=== PATIENT | female | born 1955 | race Caucasian/White ===

== ENCOUNTER 2017-02-17 20:09 | Emergency (ER) | payer OTHER ==
[~2017-02-17] VITALS: Ht 152.4 cm; Wt 88.0 kg
[2017-02-17 20:14] VITALS: Ht 152.4 cm; Wt 88.0 kg
[2017-02-17] MEDS ORDERED: KETOROLAC 30 MG INJ IM STA (21:40)
[2017-02-17] MEDS ORDERED: HYDROCODONE/APAP (5/325) TAB PO ONE (22:00)
--- NOTE | 2017-02-17 22:35 | RADRPT ---
PROCEDURE: US DVT. CLINICAL INDICATION: Left lower extremity pain and swelling. TECHNIQUE: Multiple longitudinal and transverse images of the left lower extremity veins were obta ined with sarabia scale and color Doppler imaging. 2D grayscale measurements with compression, color D oppler flow, and augmentation was performed. The calf veins were interrogated as well. COMPARISON: No prior studies are available for comparison. FINDINGS: The left common femoral, superficial femoral and popliteal veins are normally compressible throughou t. Color flow demonstrates normal filling of the vessel. Normal waveforms are visualized and there is normal response to augmentation. The calf veins are visualized and are equally unremarkable. IMPRESSION: 1. No evidence of a deep vein thrombosis involving the left lower extremity. RPTAT: HFN .Tina Rousseau MD, Date Time Electronically viewed and signed by .Tina Rousseau MD, MD on 02/17/2017 22:35 .N/
--- NOTE | 2017-02-17 23:25 | RADRPT ---
PROCEDURE: Bilateral knee x-ray CLINICAL INDICATION: Pain in the anterior left knee. TECHNIQUE: AP weightbearing, tunnel views and bilateral lateral views of the bilateral knees were obtained. COMPARISON: None FINDINGS: Right knee: There is normal mineralization. No acute fracture or dislocation is seen. Small amount of right knee joint fluid is nonspecific. Lateral joint compartment narrowing and bone on bone articulation and genu valgus deformity at the k nee. Moderate degenerative changes in the patellofemoral joint compartment of the right knee. There is no significant soft tissue swelling. Left knee: There is normal mineralization. No acute fracture or dislocation is seen. Mild left knee joint effusion is greater than that seen on the right. There are no significant degenerative changes. There is no significant soft tissue swelling. IMPRESSION: 1. Lateral joint compartment narrowing and bone on bone articulation in the right knee. 2. Moderate degenerative changes in the patellofemoral joint compartment of the right knee. 3. No significant degenerative changes are otherwise seen in the left knee. 4. Small amount of right knee joint fluid and mild amount of left knee joint fluid, and fluid is gre ater on the left. 5. Otherwise, no acute fracture or dislocation. Physician Luis Date Time Electronically viewed and signed by Physician Luis on 02/17/2017 23:13 RS/
[2017-02-17] MEDS ORDERED: NAPR-260 PO (23:29)
[2017-02-17 23:37] VITALS: BP 181/88; PULSE 83; RESP 18
--- NOTE | 2017-02-20 10:38 | ERD ---
ER Documentation Chief Complaint Date/Time DATE: 02/20/17 TIME: 10:31 Chief Complaint LEFT KNEE PAIN X 2 WEEKS, RIGHT KNEE PAIN X 1 YEAR AGO HPI This is a 61-year-old female presenting to emergency department with left knee pain and swelling 2 weeks. Patient also has right knee pain for the past year. No recent injury or fall. No numbness or tingling to extremities. No loss of sensation. No erythema or rash. No bruising. Patient has been taking ibuprofen at home and states it is not working.Patient does not take any blood thinners. ROS All systems reviewed and are negative except as per history of present illness. Medications Home Meds Active Scripts Naproxen* (Naprosyn*) 500 Mg Tablet, 500 MG PO BID Y for PAIN AND/OR INFLAMMATION, #30 TAB Prov:DAMARIS TIAN NP 02/17/17 Allergies Allergies: Coded Allergies: Penicillins (Verified Allergy, Unknown, 02/17/17) PMhx/Soc Hx Alcohol Use: No Hx Substance Use: No Hx Tobacco Use: No Smoking Status: Never smoker Physical Exam Vitals Vital Signs Date Time Temp Pulse Resp B/P Pulse Ox O2 Delivery O2 Flow Rate FiO2 02/17/17 23:37 83 18 181/88 95 Room Air 02/17/17 20:14 97.8 103 17 174/93 97 Physical Exam Const: Alert, no acute distress Head: Atraumatic Eyes: Normal Conjunctiva ENT: Normal External Ears, Nose and Mouth. Neck: Full range of motion..~ No meningismus. Resp: Clear to auscultation bilaterally Cardio: Regular rate and rhythm, no murmurs Abd: Soft, non tender, non distended. Normal bowel sounds Skin: No petechiae or rashes Back: No midline or flank tenderness Ext: .Full extension and flexion of left and right knee. No limited range of motion. Sensation is fully intact. Strength equal bilaterally. Mild swelling to anterior medial left knee. Neur: Awake and alert Psych: Normal Mood and Affect Results 24 hrs Current Medications Medications (Trade) Dose Ordered Sig/[place] Route PRN Reason Start Time Stop Time Status Last Admin Dose Admin Ketorolac Tromethamine (Toradol) 30 mg ONCE STAT IM 02/17/17 21:40 02/17/17 21:42 DC 02/17/17 22:38 Acetaminophen/ Hydrocodone Bitart ([place] (5/325)) 1 tab ONCE ONCE PO 02/17/17 22:00 02/17/17 22:01 DC 02/17/17 22:38 Procedures/MDM [place] [address] Radiology Main Line: [phone] DIAGNOSTIC IMAGING REPORT Patient: HANS CEBALLOS : 1955 Age: 61 Sex: F MR #: [id number] DOS: 02/17/172139 Ordering MD: DAMARIS TIAN NP Location: [facility] Room/Bed: PROCEDURE: Bilateral knee x-ray CLINICAL INDICATION: Pain in the anterior left knee. TECHNIQUE: AP weightbearing, tunnel views and bilateral lateral views of the bilateral knees were obtained. COMPARISON: None FINDINGS: Right knee: There is normal mineralization. No acute fracture or dislocation is seen. Small amount of right knee joint fluid is nonspecific. Lateral joint compartment narrowing and bone on bone articulation and genu valgus deformity at the knee. Moderate degenerative changes in the patellofemoral joint compartment of the right knee. There is no significant soft tissue swelling. Left knee: There is normal mineralization. No acute fracture or dislocation is seen. Mild left knee joint effusion is greater than that seen on the right. There are no significant degenerative changes. There is no significant soft tissue swelling. IMPRESSION: 1. Lateral joint compartment narrowing and bone on bone articulation in the right knee. 2. Moderate degenerative changes in the patellofemoral joint compartment of the right knee. 3. No significant degenerative changes are otherwise seen in the left knee. 4. Small amount of right knee joint fluid and mild amount of left knee joint fluid, and fluid is greater on the left. 5. Otherwise, no acute fracture or dislocation. [place] [id number] Radiology Main Line: [phone] DIAGNOSTIC IMAGING REPORT Patient: HANS CEBALLOS : 1955 Age: 61 Sex: F MR #: [id number] DOS: 02/17/172139 Ordering MD: DAMARIS TIAN NP Location: [facility]TE Room/Bed: PROCEDURE: US DVT. CLINICAL INDICATION: Left lower extremity pain and swelling. TECHNIQUE: Multiple longitudinal and transverse images of the left lower extremity veins were obtained with sarabia scale and color Doppler imaging. 2D grayscale measurements with compression, color Doppler flow, and augmentation was performed. The calf veins were interrogated as well. COMPARISON: No prior studies are available for comparison. FINDINGS: The left common femoral, superficial femoral and popliteal veins are normally compressible throughout. Color flow demonstrates normal filling of the vessel. Normal waveforms are visualized and there is normal response to augmentation. The calf veins are visualized and are equally unremarkable. IMPRESSION: 1. No evidence of a deep vein thrombosis involving the left lower extremity. MDM: This is a 61-year-old female presenting to emergency department with bilateral knee pain left knee worse than the right. Patient has had left knee pain for the past 2 weeks and right knee pain for the past 1 year. Patient is taking ibuprofen and states it is not working. X-ray bilateral knee reviewed by radiologist as Lateral joint compartment narrowing and bone on bone articulation in the right knee. Moderate degenerative changes in the patellofemoral joint compartment of the right knee. No significant degenerative changes are otherwise seen in the left knee. Small amount of right knee joint fluid and mild amount of left knee joint fluid, and fluid is greater on the left. Otherwise, no acute fracture or dislocation. Ultrasound left lower extremity reviewed by radiologist as no evidence of a deep vein thrombosis involving left lower extremity. Patient given Toradol 30 mg IM and [place] 5/325 mg p.o. Upon reassessment, patient states pain has improved. Low suspicion for acute dislocation or fracture. Low suspicion for DVT. Patient likely has degenerative joint disease versus knee strain versus osteoarthritis versus rheumatoid arthritis. Patient is appropriate for outpatient management and will be given prescription for Naprosyn 500 mg tablets #30. Instructed patient to follow-up with primary care provider in the next 2-3 days for reassessment and additional management. Return to ED for any high fever, chest pain, difficulty breathing, shortness breath, wheezing, vomiting, diarrhea, abdominal pain or any new or worsening symptoms. Patient verbalizes understanding. All questions answered at discharge. Disclaimer: Inadvertent spelling and grammatical errors are likely due to EHR/ dictation software use and do not reflect on the overall quality of patient care. Also, please note that the electronic time recorded on this note does not necessarily reflect the actual time of the patient encounter. Departure Diagnosis: Primary Impression: Knee pain Chronicity: chronic Laterality: bilateral Qualified Code: M25.561 - Chronic pain of both knees Condition: Stable Patient Instructions: Knee Pain, Uncertain Cause Referrals: [facility] Usted se chawla hecho un examen mdico de control que le indica que no est en sarah condicin que requiera tratamiento urgente en el Departamento de Emergencia. Un estudio ms profundo y el tratamiento de kaiser condicin pueden esperar sin ningn riesgo hasta que usted sea atendida/o en el consultorio de kaiser mdico o sarah cl zabrina. Es responsabilidad suya arreglar sarah nas para el seguimiento del antonino. MANEJO DE CONDICIONES NO URGENTES EN EL FUTURO 1) Si usted tiene un mdico de atencin primaria: Usted debera llamar a kaiser mdico de atencin primaria antes de venir al departamento de emergencia. Despus de las horas de consultorio, kaiser doctor o kaiser asociado/a est disponible por telfono. El mdico o enfermero de baudilio en el servicio telefnico puede asesorarle por darnell medio para atender el problema, o antonino contrario se puede programar sarah nas. 2) Si usted no tiene un mdico de atencin primaria: Llame al mdico o clnica de referencia que aparece abajo kayla las horas de consultorio para hacer sarah nas para que le vean. CLINICAS: [facility] [phone] [id number] [facility] [phone] [address] [facility] [phone] [address] [facility]. [place] [id number] [phone] [facility]. [place] [id number] [phone] [facility]. [phone] [place] [address]. [facility] () [place] se chawla hecho un examen mdico de control que le indica que no est en sarah condicin que requiera tratamiento urgente en el Departamento de Emergencia. Un estudio ms profundo y el tratamiento de kaiser condicin pueden esperar sin ningn riesgo hasta que usted sea atendida/o en el consultorio de kaiser mdico o sarah cl zabrina. Es responsabilidad suya arreglar sarah nas para el seguimiento del antonino. MANEJO DE CONDICIONES NO URGENTES EN EL FUTURO 1) Si usted tiene un mdico de atencin primaria: Usted debera llamar a kaiser mdico de atencin primaria antes de venir al departamento de emergencia. Despus de las horas de consultorio, kaiser doctor o kaiser asociado/a est disponible por telfono. El mdico o enfermero de baudilio en el servicio telefnico puede asesorarle por darnell medio para atender el problema, o antonino contrario se puede programar sarah nas. 2) Si usted no tiene un mdico de atencin primaria: Llame al mdico o condado institucions de referencia que aparece abajo kayla las horas de consultorio para hacer sarah nas para que le vean. SI USTED NO PUEDE PAGAR PARA ANITA UN MEDICO puede ir a: [facility] [address] [place] [address] [facility] [address] [place] [address] [facility] [address] [place] [address] [facility] [address] [place] [address] Additional Instructions: Llame al doctor MAANA y doreen sarah NAS PARA DENTRO DE 2-3 BHATTI.Dgale a la secretaria que nosotros le instruimos hacer esta nas.Avise o llame si kaiser condicin se empeora antes de la nas. Regresa aqui si peor o no mejor. Regresar a ED por fiebre jairo, dolor en el pecho, dificultad para respirar, respiracin entrecortada, sibilancias, vmitos, diarrea, dolor abdominal o cualquier sntoma nuevo o que empeora. DAMARIS TIAN NP Feb 20, 2017 10:38
== END 2017-02-17 23:38 | disposition home or self-care (01) ==
LOC: FTE 20:09
DX: M25.561 Pain in right knee (principal); M25.562 Pain in left knee
CPT/HCPCS: 73562; 93971; 96372; 99285; J1885

== ENCOUNTER 2017-08-11 06:50 | Day surgery (SDC) | END 2017-08-11 10:51 | disposition home or self-care (01) ==